=== PATIENT | female | born 1975 | race Caucasian/White ===

== ENCOUNTER → 2021-03-09 08:58 | Outpatient (BNVA) | payer OTHER, SELFPAY | PROVIDERS: Visit Provider Family Medicine | DX: Z13.1 Encounter for screening for diabetes mellitus (principal); Z13.6 Encounter for screening for cardiovascular disorders; N95.1 Menopausal and female climacteric states; R53.83 Other fatigue; Z83.3 Family history of diabetes mellitus | CPT/HCPCS: 80053; 80061; 82607; 82652; 83001; 83002; 83036; 84443; 85025 ==

== ENCOUNTER → 2023-09-05 13:12 | Outpatient (BNVA) | payer OTHER, SELFPAY | PROVIDERS: Visit Provider Nurse Practitioner Women's Health | DX: R10.2 Pelvic and perineal pain (principal); Z90.710 Acquired absence of both cervix and uterus | CPT/HCPCS: 76830 ==

== ENCOUNTER 2023-10-11 13:00 | Outpatient (CLI) | payer OTHER, SELFPAY ==
--- NOTE | 2023-10-11 13:00 | MM_ITS ---
WS: [id number] SCREENING DIGITAL BREAST TOMOSYNTHESIS MAMMOGRAM WITH CAD HISTORY: Z12.39 - Encounter for other screening for malignant neop... COMPARISON: None available. Bilateral CC and MLO with tomosynthesis and synthetic mammography submitted. Computer aided detection analyzed. Breast composition: The breasts are heterogeneously dense, which may obscure small masses. Lobulated mass medial LEFT breast at middle depth above the nipple line measures 6 x 5 mm. Mass is just medial to the nipple line near 10:00. No suspicious calcifications. IMPRESSION: MM/[place] [id number] BI-RADS: 0-Incomplete: Need additional imaging evaluation FOLLOW UP: Need Additional Imaging Recommendation: LEFT breast ultrasound, limited. Characterize lobulated mass me asuring 6 x 5 mm at 10:00.
== END 2023-10-11 13:01 | disposition home or self-care (01) ==
LOC: MOBLMAM 13:07
PROVIDERS: PCP Nurse Practitioner Women's Health; Visit Provider Nurse Practitioner Women's Health
DX: Z12.39 Encounter for other screening for malignant neoplasm of breast (principal)
CPT/HCPCS: 77063; 77067

== ENCOUNTER 2023-10-30 10:44 | Outpatient (CLI) | payer OTHER, SELFPAY ==
--- NOTE | 2023-10-30 11:15 | US_ITS ---
WS: [id number] ULTRASOUND LEFT BREAST HISTORY: R92.8 - Other abnormal and inconclusive findings on diagn... COMPARISON: Mammogram 10/11/2023 TECHNIQUE: 2-D and Doppler. In the LEFT breast at 10:00, 3 cm from the nipple is a group of small simple cysts measuring 6 x 5 x 3 mm. No increased vascularity and no soft tissue. This corresponds to the mammographic abnormality. IMPRESSION: US/US breast LT limited* [id number] BI-RADS: 2-Benign FOLLOW-UP: 1 Year Follow-up
== END 2023-10-30 10:45 | disposition home or self-care (01) ==
LOC: RAD 10:44
PROVIDERS: PCP Nurse Practitioner Women's Health; Visit Provider Nurse Practitioner Women's Health
DX: N60.02 Solitary cyst of left breast (principal)
CPT/HCPCS: 76642

== ENCOUNTER 2024-05-16 12:11 | Outpatient (CLI) | payer OTHER, SELFPAY | END 2024-05-16 12:12 | disposition home or self-care (01) | LOC: LAB 12:11 | PROVIDERS: Visit Provider Surgery | DX: R19.7 Diarrhea, unspecified (principal) | CPT/HCPCS: 83630; 83993 ==